=== PATIENT | female | born 1985 | race Hispanic/Latino ===

== ENCOUNTER 2024-01-26 08:38 | Emergency (ER) | payer SELFPAY ==
[2024-01-26] MEDS ORDERED: ONDANSETRON 4 MG/2 ML VIAL ONE (09:20)
[2024-01-26] MEDS ORDERED: FAMOTIDINE 20 MG/2 ML VIAL IV ONE (09:21)
[2024-01-26] MEDS ORDERED: KETOROLAC 30 MG/ML INJ ONE (09:21)
[2024-01-26] MEDS ORDERED: NA CHLORIDE 0.9% 1,000 ML ONE (09:21)
[2024-01-26 09:44] LABS: Absolute Lymphocytes (CBC) 0.9 K/uL (0.7-4.9); Absolute Monocytes 0.4 K/uL (0.1-1.3); Absolute Neutrophil 5.5 K/uL (1.8-8.0); Basophils % 0.3 % (0-1.3); Eosinophils % 0.1 % (0-4.4); Hematocrit 38.1 % (36.0-45.0); Lymphocytes % 12.9 % (15.3-44.8); MCHC 34.2 g/dL (32.0-36.0); MCV 93.8 fL (80-100); MPV 8.5 fL (7.6-11.3); Monocytes % 5.5 % (3.3-12.3); Neutrophils % 81.2 % (41.7-73.7); Nucleated Red Blood Cells % 0.1 % (0-0); Platelets 280 thou/uL (152-406); RBC Red Blood Cell Count 4.07 M/uL (3.86-4.86); Red Cell Distribution Width 13.2 % (12.1-15.2)
[2024-01-26 09:55] LABS: Specific Gravity 1.017 (1.005-1.030); Sqamous Epithelial <5 /HPF (None Seen); Urine Bacteria None Seen /HPF (<20); Urine Bilirubin NEGATIVE (Negative); Urine Blood 2+ (Negative); Urine Clarity Clear (Clear); Urine Color Light-Yellow (Yellow); Urine Culture Reflex Order NOT NEEDED; Urine Glucose NEGATIVE (Negative); Urine Ketones 3+ (Negative); Urine Microscopic Reflex YN ORDER UMIC; Urine Mucus Slight /HPF (None Seen); Urine Nitrite NEGATIVE (Negative); Urine Protein NEGATIVE (Negative); Urine Urobilinogen Normal (Normal); Urine WBC <5 /HPF (<5); Urine WBC Clump Rare /HPF (None Seen); Urine Yeast (Budding) Trace /HPF (None Seen)
[2024-01-26 10:00] LABS: Albumin 3.7 g/dL (3.4-5.0); Alkaline Phosphatase 89 U/L (45-117); Anion Gap 8.5 mEq/L (5.0-15.0); BUN Blood Urea Nitrogen 10 mg/dL (7-18); Bicarbonate 25 mEq/L (21-32); Bilirubin Total 0.9 mg/dL (0.2-1.0); Globulin 3.7 g/dL (2.3-3.5); Glomerular Filtration Rate 118 ml/min (=/>90); Glucose Level 93 mg/dL (74-106); Lipase 19 U/L (13-75); Potassium 3.5 mEq/L (3.5-5.1); Protein, Total 7.4 g/dL (6.4-8.2); Sodium Level 139 mEq/L (136-145)
[2024-01-26 10:19] LABS: ALT/SGPT < 14 U/L (13-56); AST/SGOT < 10 U/L (15-37)
--- NOTE | 2024-01-26 10:30 | RAD REPORT ---
EXAMINATION: CT ABDOMEN AND PELVIS WITH CONTRAST CLINICAL INDICATION: Female, 38 years old. right side abdomen pain TECHNIQUE: CT abdomen and pelvis was performed, after the administration of IV contrast, as per [facility] protocol. Axial, sagittal and coronal reconstructions were obtained. One or more of the following dose reduction techniques were used: Automated exposure control, adjustment of the mA and k V according to patient size, and iterative reconstruction. Unless otherwise specified, incidental findings do not require dedicated imaging follow-up. COMPARISON: No prior exam. FINDINGS: LOWER CHEST: The visualized lung bases are clear. LIVER: Normal in size and contour. No focal lesion. BILIARY SYSTEM: No suspicious abnormalities. SPLEEN: Normal size. Small exophytic inferior pole subcapsular hypodense one CM lesion, may suggest a small cyst. PANCREAS: No mass, ductal dilation, or annika-pancreatic fluid. ADRENALS: Normal; no mass. KIDNEYS: Normal size and contour. No hydronephrosis. URINARY BLADDER: Unremarkable. GASTROINTESTINAL TRACT: No evidence of free air, significant intra-abdominal free fluid, bowel obstru ction or abscess. APPENDIX: Normal appendix. LYMPH NODES: No lymphadenopathy. MUSCULOSKELETAL: No acute or suspicious osseous abnormality. ADDITIONAL FINDINGS: None. IMPRESSION: No acute or concerning abnormalities seen in the abdomen or pelvis. Incidentally noted small subcapsular splenic cyst, benign in appearance.
--- NOTE | 2024-01-26 11:45 | RAD REPORT ---
EXAMINATION: Abdomen Exam Limited CLINICAL HISTORY: [facility] MAIN Y ABD PAIN Bed Name: 15 COMPARISON: None. TECHNIQUE: Limited upper abdominal grayscale and color flow sonographic images. FINDINGS: Gallbladder: Normal. No gallstones Bile ducts: No intrahepatic or extrahepatic biliary dilatation. Common bile duct measures 3 mm. Liver: Visualized portions of the liver demonstrate normal echogenicity with no suspicious findings. Fluid: No ascites. IMPRESSION: No abnormalities on right upper quadrant ultrasound.
[2024-01-26] MEDS ORDERED: MORPHINE 4 MG/ML SYR ONE (11:50)
--- NOTE | 2024-01-26 12:21 | ER ---
Nurse's Notes [facility] Name: Monique Spivey Age: 38 yrs Sex: Female : 1985 Arrival Date: 01/26/2024 Time: 08:38 Bed 15 Private MD: Diagnosis: Abdominal pain, unspecified Presentation: 01/25 08:53 Chief complaint: Patient states: RUQ PAIN x6 DAYS, N/V/D x2 DAYS. Coronavirus screen: bp At this time, the client does not indicate any symptoms associated with coronavirus-19. Ebola Screen: No symptoms or risks identified at this time. Initial Sepsis Screen: Does the patient meet any 2 criteria? No. Patient's initial sepsis screen is negative. Does the patient have a suspected source of infection? No. Patient's initial sepsis screen is negative. Risk Assessment: Do you want to hurt yourself or someone else? Patient reports no desire to harm self or others. Onset of symptoms is unknown. 08:53 Method Of Arrival: Ambulatory bp 08:53 Acuity: HERB 3 bp Triage Assessment: 08:54 General: Appears in no apparent distress. Behavior is calm, cooperative, appropriate bp for age. Pain: Complains of pain in right upper quadrant. EENT: No deficits noted. Neuro: No deficits noted. Cardiovascular: No deficits noted. Respiratory: No deficits noted. GI: Reports upper abdominal pain, diarrhea, nausea, vomiting. : No signs and/or symptoms were reported regarding the genitourinary system. Derm: No deficits noted. Musculoskeletal: No deficits noted. 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 - Infectious Disease History:: Denies. - Social history:: Smoking status: Patient denies any tobacco usage or history of. Screenin:46 [facility] ED Fall Risk Assessment (Adult) History of falling in the last 3 months, iw including since admission No falls in past 3 months (0 pts) Confusion or Disorientation No (0 pts) Intoxicated or Sedated No (0 pts) Impaired Gait No (0 pts) Mobility Assist Device Used No (0 pt) Altered Elimination No (0 pt) Score/Fall Risk Level 0 - 2 = Low Risk Oriented to surroundings, Maintained a safe environment. Abuse screen: Denies threats or abuse. Nutritional screening: No deficits noted. Tuberculosis screening: No symptoms or risk factors identified. Assessment: 09:30 General: Appears in no apparent distress. Behavior is calm, cooperative. Pain: iw Complains of pain in abdomen and right upper quadrant Pain does not radiate. Pain currently is 10 out of 10 on a pain scale. Neuro: Level of Consciousness is awake, alert, obeys commands, Oriented to person, place, time, situation, Moves all extremities. Full function. Cardiovascular: Patient's skin is warm and dry. Respiratory: Respiratory effort is even, unlabored, Respiratory pattern is regular, symmetrical. GI: Abdomen is flat, non-distended, Bowel sounds present X 4 quads. Abd is soft and non tender X 4 quads. Reports upper abdominal pain, nausea, vomiting. Derm: Skin is intact, is healthy with good turgor. Vital Signs: 08:53 BP 127 / 91; Pulse 97; Resp 16; Temp 98.8; Pulse Ox 100% ; Weight 60.33 kg; Height 5 bp ft. 3 in. ; 11:54 BP 122 / 76; Pulse 76; Resp 16; Pulse Ox 98% on R/A; cm10 12:41 BP 117 / 84; Pulse 71; Resp 16; Pulse Ox 98% on R/A; cm10 08:53 Body Mass Index 23.56 (60.33 kg, 160.02 cm) bp ED Course: 08:41 Patient arrived in ED. mg5 08:42 Rakesh Roach PA is PHCP. cp 08:42 Khanh Mendez DO is Attending Physician. cp 08:54 Triage completed. bp 08:54 Arm band placed on. bp 08:56 Sydnee Story, RN is Primary Nurse. iw 09:30 Initial lab(s) drawn, by me, sent to lab. Urine collected: clean catch specimen, clear, zm gricelda colored. Inserted saline lock: 20 gauge in right wrist, using aseptic technique. Blood collected. Flushed with 10 mL NS. 09:38 CBC with Diff Sent. zm 09:38 CMP Sent. zm 09:38 Lipase Sent. zm 09:39 Test, Urine Sent. zm 09:39 Urinalysis w/ reflexes Sent. zm 10:05 CT Abd/Pelvis - IV Contrast Only In Process Unspecified. EDMS 10:41 Primary Nurse role handed off by Sydnee Story, MAHIN cm10 10:41 Hattie Abdi, RN is Primary Nurse. cm10 11:20 US Abdomen Limited: ruq In Process Unspecified. EDMS 12:41 Patient has correct armband on for positive identification. Provided Education on: cm10 Follow-up instructions. 12:41 No provider procedures requiring assistance completed. IV discontinued, intact, cm10 bleeding controlled, No redness/swelling at site. Pressure dressing applied. Administered Medications: 09:47 Drug: NS 0.9% IV 1000 ml IV at 1 bolus Per protocol; 1000 mL bolus Route: IV; Rate: 1 iw bolus; Site: right antecubital; 11:53 Follow up: Response: No adverse reaction; IV Status: Completed infusion; IV Intake: cm10 1000ml 09:47 Drug: Famotidine IVP 20 mg IVP once; dilute with 10 mL 0.9% NaCl; give over 2 minutes iw Route: IVP; Site: right antecubital; 11:53 Follow up: Response: No adverse reaction cm10 09:47 Drug: Ondansetron IVP 4 mg IVP once; over 2 minutes Route: IVP; Site: right antecubital;iw 11:53 Follow up: Response: No adverse reaction cm10 10:16 Drug: Ketorolac IVP 15 mg IVP once; if test negative Route: IVP; Site: right iw antecubital; 11:53 Follow up: Response: No adverse reaction cm10 11:53 Drug: morphine IVP or IV 4 mg IVP once over 4 mins Route: IVP; Infused Over: 4 mins; cm10 Site: right wrist; 12:41 Follow up: Response: No adverse reaction cm10 Medication: 12:42 VIS not applicable for this client. cm10 Intake: 11:53 IV: 1000ml; Total: 1000ml. cm10 Outcome: 12:21 Discharge ordered by . cp 12:41 Discharged to home ambulatory, Pt leaving via [employer] cm10 12:41 Condition: good 12:41 Discharge instructions given to patient, Instructed on discharge instructions, follow up and referral plans. medication usage, Demonstrated understanding of instructions, follow-up care, medications, Prescriptions given X 2, 12:42 Patient left the ED. cm10 Signatures: Dispatcher [employer] EDSydnee Garnett, RN RN Rakesh Quinones PA PA cp Peltier, Brian, RN RN Constance Hayes Clarissa, RN RN cm10 Mervat Suggs 5
--- NOTE | 2024-01-26 12:21 | EDPHYS ---
Physician Documentation [facility] Name: Monique Spivey Age: 38 yrs Sex: Female : 1985 Arrival Date: 01/26/2024 Time: 08:38 Bed 15 Private MD: ED Physician Khanh Mendez HPI: 01/25 08:50 This 38 yrs old Female presents to ER via Unassigned with complaints of cp Abdominal Pain. 08:50 The patient presents with abdominal pain in the right upper quadrant. Onset: The cp symptoms/episode began/occurred 6 day(s) ago. 08:50 Associated signs and symptoms: Pertinent positives: nausea and vomiting, anorexia, cp Pertinent negatives: blood in stools, chest pain, constipation, diarrhea, fever, headache, hematuria. The symptoms are described as constant. Severity of pain: in the emergency department the pain is unchanged despite home interventions. 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 - Infectious Disease History:: Denies. - Social history:: Smoking status: Patient denies any tobacco usage or history of. ROS: 08:55 Constitutional: Negative for body aches, chills, fever, poor PO intake, cp 08:55 Abdomen/GI: Positive for abdominal pain, nausea and vomiting, cp 08:55 Eyes: Negative for injury, pain, redness, and discharge, cp 08:55 ENT: Negative for drainage from ear(s), ear pain, sore throat, difficulty swallowing, difficulty handling secretions, 08:55 Cardiovascular: Negative for chest pain, edema, palpitations, 08:55 Respiratory: Negative for cough, shortness of breath, wheezing, 08:55 Back: Positive for radiated pain, 08:55 Neuro: Negative for altered mental status, dizziness, headache, weakness, 08:55 All other systems are negative, Exam: 09:00 Constitutional: The patient appears in no acute distress, alert, awake, non-toxic, well cp developed, well nourished, 09:00 Head/Face: Normocephalic, atraumatic. cp 09:00 Eyes: Periorbital structures: appear normal, Conjunctiva: normal, no exudate, no injection, Sclera: no appreciated abnormality, Lids and lashes: appear normal, bilaterally, 09:00 ENT: External ear(s): are unremarkable, Nose: is normal, Mouth: Lips: moist, Oral mucosa: moist, Posterior pharynx: Airway: no evidence of obstruction, patent, 09:00 Chest/axilla: Inspection: normal, 09:00 Cardiovascular: Rate: normal, Rhythm: regular, 09:00 Respiratory: the patient does not display signs of respiratory distress, Respirations: normal, no use of accessory muscles, no retractions, labored breathing, is not present, Breath sounds: are clear throughout, no decreased breath sounds, no stridor, no wheezing, 09:00 Abdomen/GI: Inspection: abdomen appears normal, Bowel sounds: active, all quadrants, Palpation: soft, in all quadrants, moderate abdominal tenderness, in the right upper quadrant and right lower quadrant, rebound tenderness, is not appreciated, involuntary guarding, is not appreciated, 09:00 Back: CVA tenderness, is absent, Vital Signs: 08:53 BP 127 / 91; Pulse 97; Resp 16; Temp 98.8; Pulse Ox 100% ; Weight 60.33 kg; Height 5 bp ft. 3 in. ; 11:54 BP 122 / 76; Pulse 76; Resp 16; Pulse Ox 98% on R/A; cm10 12:41 BP 117 / 84; Pulse 71; Resp 16; Pulse Ox 98% on R/A; cm10 08:53 Body Mass Index 23.56 (60.33 kg, 160.02 cm) bp MDM: 08:50 Patient medically screened. cp 12:20 Data reviewed: vital signs, nurses notes, lab test result(s), radiologic studies, CT cp scan, ultrasound, and as a result, I will discharge patient. 12:20 Differential diagnosis: appendicitis, cholecystitis, Cholelithiasis, diverticulitis, cp gastritis, pancreatitis, Pelvic Inflammatory Disease, Ureterolithiasis, urinary tract infection. I considered the following discharge prescriptions or medication management in the emergency department Medications were administered in the Emergency Department. See MAR. Counseling: I had a detailed discussion with the patient and/or guardian regarding the historical points, exam findings, and any diagnostic results supporting the discharge/admit diagnosis, lab results, radiology results, to return to the emergency department if symptoms worsen or persist or if there are any questions or concerns that arise at home. 01/25 08:51 Order name: CBC with Diff; Complete Time: 09:47 cp 01/25 09:47 Interpretation: Normal except: SAMSON% 81.2; LYM% 12.9. cp 01/25 08:51 Order name: CMP; Complete Time: 10:50 cp 01/25 12:24 Interpretation: Normal except: CL 109; AST < 10; GLOB 3.7; A/G 1.0. cp 01/25 08:51 Order name: Lipase; Complete Time: 10:50 cp 01/25 08:51 Order name: Test, Urine; Complete Time: 10:50 cp 01/25 08:51 Order name: Urinalysis w/ reflexes; Complete Time: 10:50 cp 01/25 12:24 Interpretation: Normal except: UKET 3+; UBLD 2+; URBC 5-10; BYST Trace. 01/25 08:51 Order name: CT Abd/Pelvis - IV Contrast Only; Complete Time: 10:50 cp 01/25 10:52 Order name: US Abdomen Limited: ruq; Complete Time: 11:57 cp 01/25 11:57 Interpretation: Report reviewed. 01/25 08:51 Order name: IV Saline Lock; Complete Time: 09:38 cp 01/25 08:51 Order name: Labs collected and sent; Complete Time: 09:38 cp 01/25 10:52 Order name: NPO; Complete Time: 12:09 cp Administered Medications: 09:47 Drug: NS 0.9% IV 1000 ml IV at 1 bolus Per protocol; 1000 mL bolus Route: IV; Rate: 1 iw bolus; Site: right antecubital; 11:53 Follow up: Response: No adverse reaction; IV Status: Completed infusion; IV Intake: cm10 1000ml 09:47 Drug: Famotidine IVP 20 mg IVP once; dilute with 10 mL 0.9% NaCl; give over 2 minutes iw Route: IVP; Site: right antecubital; 11:53 Follow up: Response: No adverse reaction cm10 09:47 Drug: Ondansetron IVP 4 mg IVP once; over 2 minutes Route: IVP; Site: right antecubital;iw 11:53 Follow up: Response: No adverse reaction cm10 10:16 Drug: Ketorolac IVP 15 mg IVP once; if test negative Route: IVP; Site: right iw antecubital; 11:53 Follow up: Response: No adverse reaction cm10 11:53 Drug: morphine IVP or IV 4 mg IVP once over 4 mins Route: IVP; Infused Over: 4 mins; cm10 Site: right wrist; 12:41 Follow up: Response: No adverse reaction cm10 Disposition: 09:48 I was immediately available on-site in the Emergency Department for consultation in the ms3 care of the patient. Disposition Summary: 01/26/24 12:21 Discharge Ordered Notes: Location: Home cp Problem: new cp Symptoms: have improved cp Condition: Stable cp Diagnosis - Abdominal pain, unspecified cp Followup: cp - With: Private Physician - When: 2 - 3 days - Reason: Recheck today's complaints Discharge Instructions: - Discharge Summary Sheet cp - Abdominal Pain, Adult cp Forms: - Medication Reconciliation Form cp - Antibiotic Education cp - Prescription Opioid Use cp - Patient Portal Instructions cp - Leadership Thank You Letter cp Prescriptions: - Zofran 4 mg Oral Tablet - take 1 tablet ORAL route every 12 hours As needed; 20 tablet; Refills: 0, cp Product Selection Permitted - dicyclomine 20 mg Oral tablet - take 1 tablet ORAL route 4 times per day; 30 tablet; Refills: 0, Product cp Selection Permitted Signatures: Dispatcher [employer] Sydnee Winchester RN RN iw Rakesh Roach PA PA cp Cesar Arana RN Khanh Miranda DO DO ms3 Hattie Abdi RN RN cm10 Corrections: (The following items were deleted from the chart) 08:52 08:52 Abdomen Pelvis W Con+CT.RAD.BRZ ordered. GAYE HUIZAR
[2024-01-26 13:11] VITALS: TEMP 98.8
[2024-01-26 13:15] VITALS: BP 117/84; O2SAT 98
== END 2024-01-26 12:42 | disposition home or self-care (01) ==
LOC: ER 08:38
DX: R10.11 Right upper quadrant pain (principal); R11.2 Nausea with vomiting, unspecified; Z98.82 Breast implant status
CPT/HCPCS: 36415; 74177; 76705; 80053; 81001; 81025; 83690; 85025; 99284; J2405; J7030; Q9967

== ENCOUNTER 2024-02-23 10:42 | Emergency (ER) | payer BC ==
--- OUTSIDE RECORDS SUMMARY | 2024-02-23 10:47 | XMS REPORT | Continuity of Care Document ---
Author Name Unknown Address [address] [place] [address] [facility] thconnect Address [address] [place] [address] Care Team Providers Care Flight Operations Coordinator Name Role Phone GENEVA MANZANARES Primary Care Physician Unav ailable RADIOLOGY Attending Clinician Unavailable Radiology Attending Clinician Unavailable GENEVA MANZANARES Admitting Clinician Unavail able Payers Payer Name Policy Type Policy Number Effective Date Expirati on Date Source [facility] [id number] 2024 00:00:00 Allergies, Adverse Reactions, Alerts Allergy Name Allergy Type Status Severity Reaction(s) Onset Date Inactive Date Treating Clinician Comments Source NO KNOWN ALLERGIE S Drug Class Active [facility] Social History Social Habit Start Date Stop Date Quantity Comments Source Sexual orientation U [facility] Sex assigned at 1985 00:00:00 1985 00:00:00 [facility] Smoking Status Start Date Stop Date Source Tobacco smoking consumption unknown [facility] Medications Ordered Medication Name Filled Medication Name Start Date Stop Date Current Medication? Ordering Clinician Indication Dosage Frequency Signature (SIG) Comments Components Source tc 99m-tetrofo smin (MYOVIEW) injection 10 millicurie 2023-04 004 14:00: 00 01-29 14:00 :00 No [id number] 10mCi 10 millicurie , Intravenou s, ONCE, 1 dose, On Fri01/30/24 at 0900, Routine [facility] Procedures Procedure Date / Time Performed Performing Clinician Source [place] HEPATOBILIARY W INTERVENTION 2024-01-30 15:46:00 Requisition, Paper [facility] Encounters Start Date/Time End Date/Time Encounter Type Admission Type Attending Clinicians Care Facility Care Department Encounter ID Source 2024-01-30 08:28:51 2024-01-30 23:59:00 Outpatient R RADIOLOGY [facility] [id number] [facility] 2024-01-30 08:15:00 2024-01-30 23:59:00 Hospital Encounter Radiology Radiology [facility] [id number] [facility] Results Test Description Test Time Test Comments Results Resul t Comments Source NM HEPATOBILIARY W INTERVENTION 4 20:37:35 HIDA SCAN CLINICAL HISTORY: ?78-year-old female with right upper quadrant pain,nausea, tenderness, and episodes of vomiting. COMPARISON: None TECHNIQUE AND FINDINGS: After IV injection of 8 mCi technetium 99m mebrofenin sequential images ofthe abdomen were obtained for one hour. Initial images show clearance from blood pool and normal uptake by liverparenchyma. The gallbladder is visualized by 11 minutes, it is elongated with normalvolume. The common bile duct is patent with visualization of the duodenum by 22minutes. The patient received a fatty meal challenge and dynamic imaging continuedfor 30 minutes. The gallbladder ejection fraction is 78%, (normal >35%). [facility]
[2024-02-23 12:01] LABS: Absolute Lymphocytes (CBC) 1.5 K/uL (0.7-4.9); Absolute Monocytes 0.6 K/uL (0.1-1.3); Absolute Neutrophil 7.4 K/uL (1.8-8.0); Basophils % 0.4 % (0-1.3); Eosinophils % 0.4 % (0-4.4); Hematocrit 39.9 % (36.0-45.0); Hemoglobin 13.6 g/dL (12.0-15.0); Lymphocytes % 15.5 % (15.3-44.8); MCH 31.7 pg (27.0-35.0); MCHC 34.1 g/dL (32.0-36.0); MCV 92.9 fL (80-100); MPV 9.2 fL (7.6-11.3); Monocytes % 6.8 % (3.3-12.3); Neutrophils % 76.9 % (41.7-73.7); Platelets 274 thou/uL (152-406); RBC Red Blood Cell Count 4.29 M/uL (3.86-4.86); Red Cell Distribution Width 12.7 % (12.1-15.2)
[2024-02-23 12:07] LABS: ALT/SGPT 15 U/L (13-56); Albumin 3.9 g/dL (3.4-5.0); Albumin/Globulin Ratio 1.1 (1.1-1.8); Alkaline Phosphatase 87 U/L (45-117); BUN Blood Urea Nitrogen 9 mg/dL (7-18); Bicarbonate 26 mEq/L (21-32); Bilirubin Total 0.6 mg/dL (0.2-1.0); Globulin 3.7 g/dL (2.3-3.5); Glomerular Filtration Rate 118 ml/min (=/>90); Glucose Level 95 mg/dL (74-106); Lipase 21 U/L (13-75); Protein, Total 7.6 g/dL (6.4-8.2); Sodium Level 141 mEq/L (136-145)
[2024-02-23 12:15] LABS: AST/SGOT < 10 U/L (15-37)
[2024-02-23] MEDS ORDERED: FAMOTIDINE 20 MG/2 ML VIAL IV ONE (12:51)
[2024-02-23] MEDS ORDERED: MAGNES/ALUMIN/SIMET 30ML UCUP ONE (12:57)
[2024-02-23] MEDS ORDERED: LIDOCAINE VISCOUS 2% 10ML ORAL SOLN ONE (12:57)
--- NOTE | 2024-02-23 14:08 | ER ---
Nurse's Notes [facility] Name: Monique Spivey Age: 38 yrs Sex: Female : 1985 Arrival Date: 02/23/2024 Time: 10:42 Bed 11 Private MD: Diagnosis: Upper abdominal pain, unspecified Presentation: 02/22 10:54 Chief complaint: Patient states: RUQ abdominal pain onset 3 months ago that got worse cm10 yesterday morning. Pt also reports nausea vomiting and diarrhea. PT reports that she got scoped on at [facility] due to this pain, awaiting results of biopsy. Coronavirus screen: Client denies travel out of the [place] in the last 14 days. Ebola Screen: Patient denies travel to an Ebola-affected area in the 21 days before illness onset. No symptoms or risks identified at this time. Initial Sepsis Screen: Does the patient meet any 2 criteria? No. Patient's initial sepsis screen is negative. Does the patient have a suspected source of infection? No. Patient's initial sepsis screen is negative. Risk Assessment: Do you want to hurt yourself or someone else? Patient reports no desire to harm self or others. Onset of symptoms was February 22, 2024. 10:54 Method Of Arrival: Ambulatory cm10 10:54 Acuity: HERB 3 cm10 Triage Assessment: 10:57 General: Appears in no apparent distress. uncomfortable, Behavior is calm, cooperative. cm10 Pain: Complains of pain in abdomen Pain does not radiate. Pain currently is 10 out of 10 on a pain scale. Quality of pain is described as aching, crampy, sharp, shooting. Neuro: No deficits noted. Level of Consciousness is awake, alert, obeys commands, Oriented to person, place, time, situation, Appropriate for age. Respiratory: No deficits noted. Airway is patent Respiratory effort is even, unlabored, Respiratory pattern is regular, symmetrical. 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 - Infectious Disease History:: Denies. - Social history:: Smoking status: unknown. Screenin:30 [facility] ED Fall Risk Assessment (Adult) History of falling in the last 3 months, tl4 including since admission No falls in past 3 months (0 pts) Confusion or Disorientation No (0 pts) Intoxicated or Sedated No (0 pts) Impaired Gait No (0 pts) Mobility Assist Device Used No (0 pt) Altered Elimination No (0 pt) Score/Fall Risk Level 0 - 2 = Low Risk Oriented to surroundings, Maintained a safe environment, Educated pt \T\ family on fall prevention, incl call for assistance when getting out of bed, Assessed \T\ reinforced patient's understanding of fall precautions. Abuse screen: Denies threats or abuse. Denies injuries from another. Nutritional screening: No deficits noted. Tuberculosis screening: No symptoms or risk factors identified. Assessment: 13:28 General: Appears in no apparent distress. Behavior is calm, cooperative. Pain: tl4 Complains of pain in abdomen. Neuro: Level of Consciousness is awake, alert, obeys commands, Oriented to person, place, time, situation. Cardiovascular: Capillary refill < 3 seconds Patient's skin is warm and dry. Respiratory: Airway is patent Respiratory effort is even, unlabored, Respiratory pattern is regular, symmetrical, Breath sounds are clear bilaterally. GI: Reports lower abdominal pain, upper abdominal pain, diarrhea, intolerance of food. : No signs and/or symptoms were reported regarding the genitourinary system. EENT: No signs and/or symptoms were reported regarding the EENT system. Derm: No signs and/or symptoms reported regarding the dermatologic system. Musculoskeletal: No signs and/or symptoms reported regarding the musculoskeletal system. 14:27 Reassessment: Patient and/or family updated on plan of care and expected duration. Pain tl4 level reassessed. Patient is alert, oriented x 3, equal unlabored respirations, skin warm/dry/pink. Patient states feeling better. GI: Abd is soft and non tender X 4 quads. Vital Signs: 10:54 BP 108 / 80; Pulse 74; Resp 14; Temp 98.5; Pulse Ox 98% on R/A; Weight 56.7 kg; Height cm10 5 ft. 3 in. ; Pain 10/10; 13:29 BP 106 / 84; Pulse 68; Resp 18; Pulse Ox 98% on R/A; Pain 8/10; tl4 14:28 BP 112 / 77; Pulse 79; Resp 18; Temp 97.9(O); Pulse Ox 99% on R/A; tl4 10:54 Body Mass Index 22.14 (56.70 kg, 160.02 cm) cm10 10:54 Pain Scale: Adult cm10 13:29 Pain Scale: Adult tl4 ED Course: 10:47 Patient arrived in ED. im 10:47 Khanh Mendez DO is Attending Physician. ms3 10:57 Triage completed. cm10 10:58 Arm band placed on Patient placed in an exam room, on a stretcher. cm10 11:39 Initial lab(s) drawn, by me, sent to lab. Inserted saline lock: 20 gauge in right zm wrist, using aseptic technique. Blood collected. Flushed with 10 mL NS. 11:39 CBC with Diff Sent. zm 11:39 CMP Sent. zm 11:40 Lipase Sent. zm 13:30 Patient has correct armband on for positive identification. Bed in low position. Call tl4 light in reach. Side rails up X 1. Provided Education on: ed process, call patel. Client placed on continuous cardiac and pulse oximetry monitoring. NIBP monitoring applied. Door closed. Noise minimized. Lights dimmed. Moved to private room. Warm blanket given. 13:30 No provider procedures requiring assistance completed. tl4 14:27 Johnathan Guerra, RN is Primary Nurse. tl4 14:28 IV discontinued, intact, bleeding controlled, No redness/swelling at site. Pressure tl4 dressing applied. Administered Medications: 13:31 Drug: Famotidine IVP 20 mg IVP once; dilute with 10 mL 0.9% NaCl; give over 2 minutes tl4 Route: IVP; Infused Over: 2 mins; Site: right wrist; 14:31 Follow up: Response: No adverse reaction tl4 13:31 Drug: GI Cocktail with - (Maalox PO 30 ml, Lidocaine Mucous Membrane 2 % 20 tl4 ml, Phenobarbital-Belladonna PO 10 ml) PO once {Note: phenobarbital-belladonna PO not available per pharmacy, Dr Mendez aware.} Route: PO; 14:31 Follow up: Response: No adverse reaction; Pain is decreased tl4 Medication: 13:30 VIS not applicable for this client. tl4 Outcome: 14:07 Discharge ordered by . ms3 14:28 Discharged to home ambulatory, tl4 14:28 Condition: stable 14:28 Discharge instructions given to patient, Instructed on discharge instructions, follow up and referral plans. medication usage, Demonstrated understanding of instructions, follow-up care, medications, Prescriptions given X 1, 14:31 Patient left the ED. tl4 Signatures: Khanh Mendez DO DO ms3 Constance Abdi Itzel im Martinez, Clarissa, RN RN cm10 Johnathan Guerra RN RN tl4
--- NOTE | 2024-02-23 14:08 | EDPHYS ---
Physician Documentation [facility] Name: Monique Spivey Age: 38 yrs Sex: Female : 1985 Arrival Date: 02/23/2024 Time: 10:42 Bed 11 Private MD: ED Physician Khanh Mendez HPI: 02/22 18:53 This 38 yrs old Female presents to ER via Ambulatory with complaints of right ms3 side pain, Nausea. 18:53 38-year-old female with past medical history of anxiety presents to the emergency ms3 department for right upper quadrant abdominal pain that has been ongoing for 2 and half months. Patient states that she recently has had an upper endoscopy, colonoscopy, CT scan, HIDA scan for her symptoms. Patient states her pain became worse yesterday. Patient endorses nausea, vomiting, diarrhea.. 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 - Infectious Disease History:: Denies. - Social history:: Smoking status: unknown. ROS: 18:53 Constitutional: Negative for fever, and chills. Neck: Negative for injury, pain, and ms3 swelling, Cardiovascular: Negative for chest pain, and palpitations. Respiratory: Negative for shortness of breath, cough, wheezing, and pleuritic chest pain, 18:53 MS/Extremity: Negative for injury and deformity, Skin: Negative for injury, rash, and discoloration, 18:53 Abdomen/GI: Positive for nausea, vomiting, and diarrhea, Exam: 18:53 Constitutional: This is a well developed, well nourished patient who is awake, alert, ms3 and in no acute distress. Chest/axilla: Normal chest wall appearance and motion. Nontender with no deformity. Cardiovascular: Regular rate and rhythm with a normal S1 and S2. No gallops, murmurs, or rubs. Normal PMI, no JVD. No pulse deficits. Respiratory: Lungs have equal breath sounds bilaterally, clear to auscultation and percussion. No rales, rhonchi or wheezes noted. No increased work of breathing, no retractions or nasal flaring. Abdomen/GI: Soft, non-tender, with normal bowel sounds. No distension or tympany. No guarding or rebound. No evidence of tenderness throughout. Skin: Warm, dry with normal turgor. Normal color with no rashes, no lesions, and no evidence of cellulitis. MS/ Extremity: Pulses equal, no cyanosis. Neurovascular intact. Full, normal range of motion. Vital Signs: 10:54 BP 108 / 80; Pulse 74; Resp 14; Temp 98.5; Pulse Ox 98% on R/A; Weight 56.7 kg; Height cm10 5 ft. 3 in. ; Pain 10/10; 13:29 BP 106 / 84; Pulse 68; Resp 18; Pulse Ox 98% on R/A; Pain 8/10; tl4 14:28 BP 112 / 77; Pulse 79; Resp 18; Temp 97.9(O); Pulse Ox 99% on R/A; tl4 10:54 Body Mass Index 22.14 (56.70 kg, 160.02 cm) cm10 10:54 Pain Scale: Adult cm10 13:29 Pain Scale: Adult tl4 MDM: 11:21 Medical Screening Exam initiated ms3 18:53 Differential diagnosis: Nonspecific abd pain, gastritis, pancreatitis. Data reviewed: ms3 vital signs, nurses notes, lab test result(s), and as a result, I will discharge patient. I considered the following discharge prescriptions or medication management in the emergency department Medications were administered in the Emergency Department. See MAR. Counseling: I had a detailed discussion with the patient and/or guardian regarding the historical points, exam findings, and any diagnostic results supporting the discharge/admit diagnosis, lab results, radiology results, the need for outpatient follow up, to return to the emergency department if symptoms worsen or persist or if there are any questions or concerns that arise at home. Special discussion: Based on the patient's Hx, exam, and Dx evaluation, there is no indication for emergent surgery or inpatient Tx. It is understood by the patient/guardian that if the Sx's persist or worsen they need to return immediately for re-evaluation. ED course: Discussed labs with the patient. Patient with recent normal imaging without significant lab abnormalities. Patient to follow-up with her primary care physician in 2 to 3 days. All questions were answered. Return precautions discussed include worsening symptoms, or any other concerns. On reevaluation patient states her symptoms have improved, she is alert and oriented x 4, no apparent distress, nontoxic-appearing, tolerating p.o.. 02/22 11:22 Order name: CBC with Diff; Complete Time: 12:45 ms3 02/22 11:22 Order name: CMP; Complete Time: 12:45 ms3 02/22 11:22 Order name: Lipase; Complete Time: 12:45 ms3 02/22 11:22 Order name: IV Saline Lock; Complete Time: 11:39 ms3 02/22 11:22 Order name: Labs collected and sent; Complete Time: 11:39 ms3 Administered Medications: 13:31 Drug: Famotidine IVP 20 mg IVP once; dilute with 10 mL 0.9% NaCl; give over 2 minutes tl4 Route: IVP; Infused Over: 2 mins; Site: right wrist; 14:31 Follow up: Response: No adverse reaction tl4 13:31 Drug: GI Cocktail with - (Maalox PO 30 ml, Lidocaine Mucous Membrane 2 % 20 tl4 ml, Phenobarbital-Belladonna PO 10 ml) PO once {Note: phenobarbital-belladonna PO not available per pharmacy, Dr Mendez aware.} Route: PO; 14:31 Follow up: Response: No adverse reaction; Pain is decreased tl4 Disposition Summary: 02/23/24 14:07 Discharge Ordered Notes: Location: Home ms3 Condition: Stable ms3 Diagnosis - Upper abdominal pain, unspecified ms3 Followup: ms3 - With: Private Physician - When: 2 - 3 days - Reason: Recheck today's complaints Discharge Instructions: - Discharge Summary Sheet ms3 - Abdominal Pain, Adult ms3 Forms: - Medication Reconciliation Form ms3 - Antibiotic Education ms3 - Prescription Opioid Use ms3 - Patient Portal Instructions ms3 - Leadership Thank You Letter ms3 - Work release form tl4 Prescriptions: - sucralfate 100 mg/mL Oral suspension - take 10 milliliter ORAL route 2 times per day for 4 wks; 150 milliliter; ms3 Refills: 0, Product Selection Permitted Signatures: Dispatcher MedHo Khanh Willett DO DO ms3 Jin, Hattie, RN RN cm10 Logdahl, Johnathan, RN RN tl4
[2024-02-23 15:04] VITALS: BP 112/77; TEMP 97.9; O2SAT 99
== END 2024-02-23 14:31 | disposition home or self-care (01) ==
LOC: ER 10:42
DX: R10.11 Right upper quadrant pain (principal); R11.2 Nausea with vomiting, unspecified; R19.7 Diarrhea, unspecified; Z98.82 Breast implant status
CPT/HCPCS: 36415; 80053; 83690; 85025; 96374; 99284